=== PATIENT | male | born 1965 | race Caucasian/White ===

== ENCOUNTER 2019-03-09 06:17 | Day surgery (SDC) | payer MEDICAID ==
[2019-03-08 15:53] VITALS: BMI 26.5
[~2019-03-09] VITALS: Ht 172.7 cm; Wt 78.5 kg
[2019-03-09] VITALS (8 sets, daily range): BP systolic 121–157; BP diastolic 73–93; PULSE 68–72; RESP 11–23; Ht 172.7 cm; Wt 78.5 kg
[~2019-03-09 06:17] MED LIST: AMLO5TAB4 PO; CARV12.579 PO; HYDR-4012 PO; KETO5DRO21 RIGHT EYE; LATA2.5D2 RIGHT EYE; LISI-471 PO; METF100010 PO; OFLO5DRO46 RIGHT EYE
[2019-03-09] MEDS ORDERED: TETRACAINE 0.5% 4 ML OPH (PRE-OP) OPER SCH (07:00)
[2019-03-09] MEDS ORDERED: TROPICAMIDE 1% 15 ML OPH (PRE OP) OPER SCH (07:00)
[2019-03-09] MEDS ORDERED: PHENYLephrine 2.5% 15 ML OPH (PRE-OP) OPER SCH (07:00)
[2019-03-09] MEDS ORDERED: DICLOFENAC 0.1% 2.5 ML OPH (PRE-OP) OPER SCH (07:00)
[2019-03-09] MEDS ORDERED: CIPROFLOXACIN 0.3% 2.5 ML OPH (PRE-OP) OPER SCH (07:00)
[2019-03-09] MEDS ORDERED: ACETAMINOPHEN 325 MG TAB (POST-OP) PO PRN (07:00)
[2019-03-09] MEDS ORDERED: EPINEPHrine 1 MG INJ ONE (07:41)
[2019-03-09] MEDS ORDERED: TETRACAINE 0.5% 4 ML OPH ONE (07:41)
[2019-03-09] MEDS ORDERED: LIDOCAINE 1%/EPI 30 ML INJ ONE (07:41)
--- NOTE | 2019-03-09 07:57 | PREAC ---
Date/Time of Note Date/Time of Note DATE: 03/09/19 TIME: 07:55 Anesthesia Eval and Record Evaluation Time Pre-Procedure Interview DATE: 03/09/19 TIME: 07:55 Age 53 Sex male NPO: 8 hrs Preoperative diagnosis Rt eye Cataract Planned procedure Rt eye CE IOL implant Past Medical History Past Medical History: Includes Cardio: HTN, Dyslipidemia Endo: Diabetes Surgery & Anesthesia Issues No known issue Meds Anticoagulation: No Beta Dung within 24 hr: No Reason Beta Dung not given: Pt. not on B-Dung Reported Medications Latanoprost (Latanoprost) 2.5 Ml Drops, 1 DROP RIGHT EYE QHS, #1 BOTTLE 03/09/19 Ofloxacin* (Ocuflox*) 0.3%-5 Ml Ophth Drops, 1 DROP RIGHT EYE TID, BOTTLE 03/09/19 Ketorolac Tromethamine Oph (Ketorolac Tromethamine Oph) 0.5%-5 Ml Opht Drops, 1 DROP RIGHT EYE TID, EA 03/09/19 Metformin Hcl* (Metformin Hcl*) 1,000 Mg Tablet, 1000 MG PO WITH BREAKFAST DINNE, #60 TAB 03/09/19 Lisinopril* (Lisinopril*) 20 Mg Tablet, 40 MG PO DAILY, #30 TAB 03/09/19 Amlodipine Besylate* (Norvasc*) 5 Mg Tablet, 5 MG PO DAILY, TAB 03/09/19 Carvedilol* (Carvedilol*) 12.5 Mg Tablet, 12.5 MG PO BID, #60 TAB 03/09/19 Hydrocodone/Acetaminophen ([place] 7.5-325 Tablet) 1 Each Tablet, 1 EACH PO Q4H, TAB 03/09/19 Current Medications Tetracaine HCl (Tetracaine 0.5% Steri-Unit Lydia) 1 drop Q5 MIN X3 OPER Last administered on 03/09/19at 07:35; Admin Dose 1 DROP; Start 03/09/19 at 07:00 Tropicamide (Mydriacyl 1%) 1 drop Q5 MIN X3 OPER Last administered on 03/09/19at 07:33; Admin Dose 1 DROP; Start 03/09/19 at 07:00 Phenylephrine HCl (Ak-Dilate 2.5%) 1 drop Q5 MIN X3 OPER Last administered on 03/09/19at 07:32; Admin Dose 1 DROP; Start 03/09/19 at 07:00 Diclofenac Sodium (Voltaren 0.1%) 1 drop Q5 MIN X3 OPER Last administered on 03/09/19at 07:34; Admin Dose 1 DROP; Start 03/09/19 at 07:00 Ciprofloxacin HCl (Ciloxan 0.3% Oph) 1 drop Q5 MIN X3 OPER Last administered on 03/09/19at 07:34; Admin Dose 1 DROP; Start 03/09/19 at 07:00 Acetaminophen (Tylenol Tab) 650 mg Q6H PRN PO PAIN; Start 03/09/19 at 07:00 Lactated Ringer's 500 ml @ 25 mls/hr Q20H IV ; Start 03/09/19 at 08:00 Meds reviewed: Yes Allergies Coded Allergies: No Known Allergy (Unverified , 03/09/19) Allergies Reviewed: Yes Labs/Studies Labs Reviewed: Reviewed by anesthesiologist test: N/A Studies: ECG Pre-procedure Exam Last vitals Vital Signs Date Temp Pulse Resp B/P (MAP) Pulse Ox O2 O2 Flow FiO2 Time Delivery Rate 03/09/19 97.2 72 18 157/93 98 Room Air 06:45 (114) Airway: Adequate mouth opening, Adequate thyromental dist Mallampati: Mallampati II Teeth: Normal Lung: Normal Heart: Normal ASA Physical Status ASA physical status: 3 Emergency: None Planned Anesthetic General/MAC: MAC Planned Pain Management Parenteral pain med Pre-operative Attestations Prior to commencing anesthesia and surgery, the patient was re-evaluated, there was verification of: *The patient's identity *The results of appropriate recent lab work and preoperative vital signs *The above evaluation not changing prior to induction *Anesthetic plan, risk benefits, alternative and complications discussed with patient/family; questions answered; patient/family understands, accepts and wishes to proceed. PRAVEENA WERNER MD Mar 09, 2019 07:57
[2019-03-09] MEDS ORDERED: LACTATED RINGER'S 500 ML IV SCH (08:00)
--- NOTE | 2019-03-09 08:05 | HPN ---
Date/Time of Note Date/Time of Note DATE: 03/09/19 TIME: 08:04 Interval H&P Admission Note Pt. seen H&P reviewed: No system changes LETICIA KENNEDY MD Mar 09, 2019 08:05
[2019-03-09] MEDS ORDERED: FENTAnyl 50 MCG/ML VIAL ONE (08:13)
[2019-03-09] MEDS ORDERED: MIDAZOLAM 1 MG/ML 2 ML INJ ONE (08:13)
--- NOTE | 2019-03-09 08:57 | PAC ---
Date/Time of Note Date/Time of Note DATE: 03/09/19 TIME: 08:57 Post-Anesthesia Notes Post-Anesthesia Note Last documented vital signs Vital Signs Date Temp Pulse Resp B/P (MAP) Pulse Ox O2 O2 Flow FiO2 Time Delivery Rate 03/09/19 97.2 72 18 157/93 98 Room Air 06:45 (114) Activity: WNL Respiratory function: WNL Cardiovascular function: WNL Mental status: Baseline Pain reasonably controlled: Yes Hydration appropriate: Yes Nausea/Vomiting absent: Yes Comments BP:124/67, P:78, Spo2:100%, T:98,8 PRAVEENA WERNER MD Mar 09, 2019 08:57
[2019-03-09] MEDS ORDERED: FENTAnyl 50 MCG/ML VIAL IV PRN (09:00)
[2019-03-09] MEDS ORDERED: ONDANSETRON 4 MG INJ IV PRN (09:00)
[2019-03-09] MEDS ORDERED: METOCLOPRAMIDE 10 MG INJ IV PRN (09:00)
[2019-03-09] MEDS ORDERED: MEPERIDINE 25 MG INJ IV PRN (09:00)
[2019-03-09] MEDS ORDERED: HYDROmorphONE 1 MG/5 ML IV SYRINGE IV PRN ×2 (09:00)
[2019-03-09] MEDS ORDERED: DIPHENHYDRAMINE 50 MG INJ IV PRN (09:00)
--- NOTE | 2019-03-09 09:00 | OPR ---
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 Operation/Procedure Performed Phacoemulsification with Intraocular Lens Implantation Right eye Surgeon see signature line Board Certified Family Physician Deepak Anesthesia Type: MAC Anesthesiologist: PRAVEENA WERNER MD Estimated Blood Loss: none Transfusion none Specimen No Pathology Specimen was Sent Grafts/Implants IMPLANT: Jaime Acrysof IOL Model [id number] Power : 20.0 D Tubes/Drains none Complications none Pt Condition Post Procedure: stable Disposition: PACU Indications INDICATIONS FOR SURGERY: Patient has visually significant Cataract in the operative eye affecting the activities of daily living. this has affected patients ability to perform some of the daily tasks such as reading, watching Television, and in some cases drivi ng. The patient has tried a change of glasses, which have failed to provide the satisfactory improvement in vision. Procedure Description OPERATIVE REPORT: The patient was identified and brought to the pre-op area. The operative eye was identified and informed consent was obtained after the patient fully understood the risks, benefits and alternatives of the planned surgery. Three sequential applications of Mydriacyl 1%, Phenylephrine 2.5%, Tetracaine 1% and Ocuflox eyedrops were applied to the operative eye at 5 minute intervals. Patient was brought to the operating room and placed in a supine position. The monitoring equipment was attached and IV sedation was initiated by the Anesthesiologist. The Operative eye was cleaned , prepared and draped in a sterile fashion. The eyelid speculum was placed and microscope was aligned for good visualization. Side port incision of 1.1 mm was made at the limbus using a MVR blade and globe fixator. Preservative free Lidocaine 1% in BSS was injected to enhance the local anesthesia. a dispersive Viscoelastic substance was injected in the anterior chamber. A clear corneal Limbal Temporal incision was performed using a 2.4 mm angled Keratome blade in a biplanar configuration and about 2.5 mm long. Anterior Capsulorrhexis was initiated with a Cystotome and completed with Utrata's scissors to achieve a 5 mm round, continuous and curvilinear opening. Hydrodissection and hydrodelineation was performed to loosen up the nucleus and epinucleus by injecting BSS solution with a Hydrodissection canula. The nucleus was mobilized to rotate freely with a kuglin's hook. The phaco handpiece of the Jaime [employer] phaco machine was brought in the field. The nucleus was disassembled by using a modified Stop and Chop technique. Epinucleus was aspirated. Cortical material was aspirated with an I/A handpiece and angled soft tip aspirator. A foldable Intraocular lens of the chosen model was inserted in the folded position into the capsular bag and was allowed to open fully. The lens was rotated to achieve a good central position in the bag. The viscoelastic substance was fully removed using an I/A system. The incisions were sealed by a hydrostatic closure by injecting BSS. The incision was tested for leakage and was found to be sealed. The eyelid speculum was removed. Tobradex eye ointment and Oculflox eyedrops were instilled in the eye. Eye patch and eye shield were taped in place over closed eye.The patient tolerated the procedure very well without any complications.The patient was transferred to the recovery room in a stable condition for further monitoring. The patient was discharged to go home once the discharge criteria was met with written advice about post operative care and follow up appointment. LETICIA KENNEDY MD Mar 09, 2019 09:00
== END 2019-03-09 10:05 | disposition home or self-care (01) ==
LOC: SDS 06:17
PROVIDERS: ATTEND Ophthalmology
DX: H25.11 Age-related nuclear cataract, right eye (principal); I10 Essential (primary) hypertension; E78.5 Hyperlipidemia, unspecified; E11.9 Type 2 diabetes mellitus without complications
CPT/HCPCS: 66984; 82962; J0171; J2250; J3010; Z7610; V2632